=== PATIENT | female | born 1940 | race Caucasian/White ===

== ENCOUNTER 2017-05-15 19:48 | Emergency (ER) | payer MEDICAID ==
[2016-11-10 14:33] VITALS: BMI 25.8
== END 2017-05-15 22:27 | disposition home or self-care (01) ==
LOC: D.ER → EDBD 19:48 → D.ER 22:27
DX: J06.9 Acute upper respiratory infection, unspecified (principal)

== ENCOUNTER 2018-04-05 10:48 | Emergency (ER) | payer MEDICAID ==
[~2018-04-05] VITALS: Ht 157.5 cm; Wt 59.1 kg
[2018-04-05 10:51] VITALS: Ht 157.5 cm; Wt 59.1 kg
[2018-04-05 11:43] VITALS: BP 146/83
== END 2018-04-05 11:44 | disposition home or self-care (01) ==
LOC: D.ER 10:48 → EDBD 10:48 → D.ER 11:44
DX: J06.9 Acute upper respiratory infection, unspecified (principal); J40 Bronchitis, not specified as acute or chronic